=== PATIENT | male | born 1990 | race Caucasian/White ===

== ENCOUNTER 2018-03-28 18:09 | Emergency (ER) | payer OTHER ==
[~2018-03-28] VITALS: Ht 188 cm; Wt 97.0 kg
[2018-03-28 18:14] VITALS: BP 152/94
== END 2018-03-28 21:05 | disposition home or self-care (01) ==
LOC: ED 21:00
DX: S62.336A Displaced fracture of neck of fifth metacarpal bone, right hand, initial encounter for closed fracture (principal); W22.09XA Striking against other stationary object, initial encounter; Y93.89 Activity, other specified; Y92.009 Unspecified place in unspecified non-institutional (private) residence as the place of occurrence of the external cause; Y99.8 Other external cause status
CPT/HCPCS: 26605; 99284